=== PATIENT | male | born 1985 | race Caucasian/White ===

== ENCOUNTER 2018-09-17 17:29 | Emergency (ER) | payer OTHER ==
[2018-09-17 17:43] VITALS: RESP 20
[2018-09-17] MEDS ORDERED: Alum-Mag Hydrox-Simethicone Susp (30 mL) PO STA (20:02)
[2018-09-17] MEDS ORDERED: Aluminum Hydroxide/Magnesium Hydroxide Susp (30 mL) ONE (20:25)
[2018-09-17 21:09] VITALS: BP 109/78; PULSE 94; TEMP 98.1; O2SAT 97
[2018-09-17] MEDS ORDERED: Sodium Chloride 0.9% 1,000 ML IV ONE (21:10)
[2018-09-17] MEDS ORDERED: Sodium Chloride 0.9% 1,000 ML ONE (21:23)
[2018-09-17 21:25] LABS: BASO # 0.1 K/uL (0.0-0.2); BASO % 0.6 % (0.0-2.0); EOS # 0.1 K/uL (0.0-0.7); EOS % 1.1 % (0.0-4.0); HEMOGLOBIN 12.9 g/dL (12.0-18.0); LYMPH # 2.3 K/uL (1.0-4.3); LYMPH % 18.5 % (20.0-40.0); MEAN CELL VOLUME 81.9 fL (80.0-94.0); MEAN CORPUSCULAR HEMOGLOBIN 25.9 pg (27.0-31.0); MEAN CORPUSCULAR HGB CONC 31.7 g/dL (33.0-37.0); MEAN PLATELET VOLUME 8.3 fL (7.2-11.7); MONO # 0.6 K/uL (0.0-0.8); MONO % 5.1 % (0.0-10.0); NEUT # 9.5 K/uL (1.8-7.0); NEUT % 74.7 % (50.0-75.0); RBC 4.96 Mil/uL (4.40-5.90); RED CELL DISTRIBUTION WIDTH 14.7 % (11.5-14.5); WHITE BLOOD COUNT 12.7 K/uL (4.8-10.8)
[2018-09-17] MEDS ORDERED: Oxycodone/Acetaminophen 5/325 mg Tab PO STA (21:29)
[2018-09-17] MEDS ORDERED: MethylPREDNISolone 40 mg Vial IVP STA (21:29)
[2018-09-17] MEDS ORDERED: Oxycodone/Acetaminophen 5/325 mg Tab ONE (21:37)
[2018-09-17 21:44] LABS: ALB/GLOB RATIO 1.5 (1.0-2.1); ALBUMIN 4.6 g/dL (3.5-5.0); ALT/SGPT 22 U/L (21-72); AST/SGOT 42 U/L (17-59); BLOOD UREA NITROGEN 11 mg/dL (9-20); CALCIUM 9.5 mg/dl (8.6-10.4); GFR NON-AFRICAN AMERICAN > 60
[2018-09-17] MEDS ORDERED: guaiFENesin-Codeine 100-10mg/5ml Syrup (10ml) UD PO ONE (22:20)
[2018-09-17] MEDS ORDERED: guaiFENesin-Codeine 100-10mg/5ml Syrup (10ml) UD ONE (22:27)
--- NOTE | 2018-09-17 22:29 | C.PDOC ---
History Of Present Illness 32 year old male presents complaining of cough with yellow sputum which he states has been blood tinged over the past few days. Patient also reports having some rib pain that worsens with cough and deep inspiration. He notes having Hx of ulcerative colitis and has "not been on his treatment". Denies recent travel, SOB, trauma, abdominal pain, or diarrhea. Time Seen by Provider: 09/17/18 18:27 Chief Complaint (Nursing): Cough, Cold, Congestion History Per: Patient History/Exam Limitations: no limitations Onset/Duration Of Symptoms: Days Current Symptoms Are (Timing): Still Present Recent travel outside of the [place]: No Past Medical History Reviewed: Historical Data, Nursing Documentation, Vital Signs Vital Signs: Last Vital Signs Temp 98.1 F 09/17/18 21:08 Pulse 94 H 09/17/18 21:08 Resp 20 09/17/18 21:08 BP 109/78 09/17/18 21:08 Pulse Ox 97 09/17/18 21:08 - Medical History PMH: Fractures (L leg-metal rods), Osteoporosis Denies: Chronic Kidney Disease - [facility] Procedures EXCISION OF RECTUM, ENDO, DIAGN (05/24/17) Family History: States: Unknown Family Hx - Social History Hx Alcohol Use: No Hx Substance Use: No - Immunization History Hx Tetanus Toxoid Vaccination: No Hx Influenza Vaccination: No Hx Pneumococcal Vaccination: No Review Of Systems Constitutional: Negative for: Fever, Chills ENT: Negative for: Throat Pain Cardiovascular: Negative for: Chest Pain, Palpitations Respiratory: Positive for: Cough, Sputum. Negative for: Shortness of Breath Gastrointestinal: Negative for: Vomiting, Abdominal Pain, Diarrhea Musculoskeletal: Positive for: Other (Rib pain) Physical Exam - Physical Exam Appears: Non-toxic, Chronically Ill Skin: Normal Color, Warm, Dry Head: Atraumatic, Normacephalic Eye(s): bilateral: Normal Inspection Ear(s): Bilateral: Normal Nose: Normal Oral Mucosa: Moist Throat: Normal, No Erythema, No Exudate Neck: Normal, Supple Chest: Symmetrical, No Tenderness Cardiovascular: Rhythm Regular Respiratory: Normal Breath Sounds, No Rales, No Rhonchi, No Wheezing Gastrointestinal/Abdominal: Soft, No Tenderness Back: No CVA Tenderness Neurological/Psych: Oriented x3, Normal Speech ED Course And Treatment - Laboratory Results Result Diagrams: 09/17/18 21:21 09/17/18 21:21 Lab Results: Total Bilirubin 0.3 mg/dL (0.2-1.3) 09/17/18 21:21 AST 42 U/L (17-59) 09/17/18 21:21 ALT 22 U/L (21-72) 09/17/18 21:21 Alkaline Phosphatase 89 U/L (38-126) 09/17/18 21:21 Total Protein 7.7 g/dL (6.3-8.3) 09/17/18 21:21 Albumin 4.6 g/dL (3.5-5.0) 09/17/18 21:21 Globulin 3.1 gm/dL (2.2-3.9) 09/17/18 21:21 Albumin/Globulin Ratio 1.5 (1.0-2.1) 09/17/18 21:21 O2 Sat by Pulse Oximetry: 97 (Room air) Pulse Ox Interpretation: Normal - Radiology CXR: Interpreted by Me, Viewed By Me CXR Interpretation: Yes: No Acute Disease. No: Infiltrates Medical Decision Making Medical Decision Making: Patient instructed that CXR was negative, he states now he feels like his kidneys are "affected" and wants his function tested and is requesting more pain medication, states he has no relief with toradol. Case was discussed with Dr. Garces who evaluated patient at bedside and agrees with plan to discharge. Patient is requesting stronger pain medication and is refuses all other medication. [facility] reviewed, patient was given Rx for percocet in 04/2018. Patient is now requesting cough medications. On re-exam, the patient is resting comfortably in the ED. Vitals and labs are WNL's. Lungs are CTA, heart is RRR, Abdomen is soft, non-tender and tolerating PO well. Follow up with the medical doctor/clinic within 1-2 days without fail. Return if worsened. Disposition - Disposition Referrals: [facility] [Outside] Diana Marroquin MD [Staff Provider] - Disposition: HOME/ ROUTINE Disposition Time: 22:26 Condition: GOOD Additional Instructions: Follow up with the medical doctor within 1-2 days. Return if worsened. Prescriptions: Benzonatate 200 mg PO TID PRN #30 capsule PRN Reason: Cough Mesalamine [Asacol HD 800mg] 800 mg PO TID #90 tcp predniSONE [Prednisone] 20 mg PO BID #10 tab traMADol [Ultram] 50 mg PO Q6 PRN #20 tab PRN Reason: Pain Instructions: Acute Bronchitis, Adult (DC) Forms: [employer] (T[place]ik) - Clinical Impression Clinical Impression: Bronchitis, Inflammatory bowel disease - PA / BED MANAGER / Resident Statement MD/DO has reviewed & agrees with the documentation as recorded. - Scribe Statement The provider has reviewed the documentation as recorded by the Scribe Chico Jung All medical record entries made by the Scribmabel were at my direction and personally dictated by me. I have reviewed the chart and agree that the record accurately reflects my personal performance of the history, physical exam, medical decision making, and the department course for this patient. I have also personally directed, reviewed, and agree with the discharge instructions and disposition.
--- NOTE | 2018-09-18 10:25 | RAD ---
Chest x-ray two views History: Cough. Hemoptysis. Comparison: None available. Findings: No focal infiltrate or effusion. Heart size within normal limits. Minimal left apical pleural thickening. Nodular density at the left costophrenic angle. Heart size within normal limits. Impression: No focal infiltrate or effusion. If hemoptysis persists, consider correlation with chest CT.
== END 2018-09-17 22:38 | disposition home or self-care (01) ==
LOC: C.ER 17:29
DX: J40 Bronchitis, not specified as acute or chronic (principal); K52.9 Noninfective gastroenteritis and colitis, unspecified
CPT/HCPCS: 71046; 80053; 85025; 96361; 96372; 96374; 96375; 99284; J1885; J2405; J2920; J7030